=== PATIENT | male | born 1935 | race Caucasian/White ===

== ENCOUNTER 2017-01-11 19:15 | Inpatient (IN) | payer OTHER ==
[~2017-01-11] VITALS: Ht 165.1 cm; Wt 62.7 kg
--- NOTE | 2017-01-11 20:32 | NUR ---
PT PRESENTED TO ED WITH C/O LEFT FOOT PAIN AND REDNESS X 3 WEEKS. PT DENIES ANY TRAUMA. SWELLING NOTED TO LEFT FOOT. TENDER TO TOUCH. PT REPORTS PAIN LEVEL 8/10. PT REPORTS PAIN IS LOCALIZED. + CAP REFILL. PT HAS FULL ROM. PT IS AAOX4, BREATHING EVEN AND UNLABORED. PT IN NO ACUTE DISTRESS.
--- NOTE | 2017-01-11 21:06 | NUR ---
PT REFUSES TO TAKE VANCO RX. NOTIFIED DR. FERREIRA, PT REFUSES MED
[2017-01-11 21:34] LABS: CALCIUM 8.8 mg/dL (8.5-10.1); CARBON DIOXIDE 28.3 mmol/L (21-32); CHLORIDE SERUM 103 mmol/L (98-107); CREATININE SERUM 2.3 mg/dL (0.7-1.3); GLUCOSE SERUM 105 mg/dL (74-106); POTASSIUM SERUM 3.5 mmol/L (3.5-5.1); SODIUM SERUM 138 mmol/L (136-145)
--- NOTE | 2017-01-11 21:35 | NUR ---
PT SITTING UP RESTING, FAMILY AT BEDSIDE. PT IS AAOX4, BREATHING EVEN AND UNLABORED. PT IN NO ACUTE DISTRESS.
[2017-01-11 21:36] LABS: RED CELL DISTRIBUTION WIDTH 16.8 % (11.5-14.5)
[2017-01-11 21:37] LABS: PLATELET COUNT 41 x10^3mcL (130-400)
[2017-01-11 21:47] LABS: ALKALINE PHOSPHATASE 70 U/L (46-116); ALT/SGPT 27 U/L (16-63); AST/SGOT 19 U/L (15-37); BILIRUBIN TOTAL 0.45 mg/dL (0.20-1.00); TOTAL PROTEIN, SERUM 7.2 g/dL (6.4-8.2)
[2017-01-11 21:48] LABS: ALBUMIN 2.5 g/dL (3.4-5.0)
[2017-01-11 21:58] LABS: BAND NEUTROPHIL 0 % (0-10); MONOCYTE 2 % (0-7); SEGMENTED NEUTROPHILS 16 % (37-75)
[2017-01-11 21:59] LABS: BASOPHIL 0 % (0-2); PLATELET MORPHOLOGY PLATELETS DECREASED
[2017-01-11 22:00] LABS: rbc morphology (normal/abnorm) ABNORMAL (NORMAL)
--- NOTE | 2017-01-11 22:27 | NUR ---
RECEIVED PT FROM ED VIA [facility], CAME IN DUE TO LEFT WOUND AND PAIN. AAOX4. DENIES HEADACHE/DIZZINESS. NO SOB NOTED, LUNG SOUNDS DIMINISHED ON AUSCULTATION. DENIES CHEST PAIN/PRESSURE. DENIES ABDOMINAL DISCOMFORT. W/ EDEMA ON BILATERAL FEET (LEFT GREATER THAN THE RIGHT). DENIES ADBOMINAL DISCOMFORT. W/ WOUND AND DARK DISCOLORATION ON THE LEFT FOOT, MARKED, BALDO. C/O 7/10 PAIN ON THE LEFT FOOT. DENIES NUMBNESS/TINGLING SENSATION. WALKER AT BEDSIDE. SIDE RAILS UPX2. CALL LIGHT ON REACH. RECEIVED PT FROM ED W/ BOBBY VOGT. ENDORSED
[2017-01-11] MEDS ORDERED: ZESTRIL20 MG PO (22:32)
[2017-01-11] MEDS ORDERED: GOOD SENSE OMEP20 MG PO (22:32)
[2017-01-11] MEDS ORDERED: ALLOPURINOL100 MG PO (22:32)
--- NOTE | 2017-01-11 23:02 | NUR ---
GAVE REPORT TO ALEX BOWEN, TO ASSUME CARE POST TRANSFER.
[2017-01-11 23:34] LABS: FREE T4 1.2 ng/dL (0.76-1.46); FREE THYROXINE INDEX 2.4 ug/dL (1.4-4.5); T4(THYROXINE) 5.9 ug/dL (4.7-13.3)
[2017-01-11 23:35] LABS: CHOLESTEROL/HDL RATIO 3.5; MAGNESIUM 1.9 mg/dL (1.8-2.4); PHOSPHOROUS 3.3 mg/dL (2.5-4.9)
[2017-01-11 23:40] VITALS: Ht 165.1 cm; Wt 62.7 kg
[2017-01-11 23:46] LABS: T3 TOTAL 0.33 ng/mL
--- NOTE | 2017-01-12 00:03 | NUR ---
STS HAVING PAIN TO LLE, NORCO PO GIVEN. LLE ELEVATED ON PILLOWS.
--- NOTE | 2017-01-12 00:16 | NUR ---
REFUSED NORCO STS WOULD LIKE TO TRY SLEEPING FIRST. AMBIEN 5MG PO GIVEN.
--- NOTE | 2017-01-12 00:49 | NUR ---
NEUTROPENIC ISOLATION MAINTAINED (WBC=1.5).
[2017-01-12 03:35] LABS: UA SPECIFIC GRAVITY 1.015 (1.005-1.035); microscopic required? YES; urine erythrocyte NEGATIVE (NEGATIVE)
--- NOTE | 2017-01-12 05:40 | NUR ---
STS SLEPT OK AFTER AMBIEN PO. NO ANY DISTRESS THROUGHOUT SHIFT. STS PAIN TO LLE IS TOLERATED AT THIS TIME. ALL DUE MEDS GIVEN.
[2017-01-12 06:42] VITALS: BP 129/52
[2017-01-12 07:06] LABS: CALCIUM 8.5 mg/dL (8.5-10.1); CARBON DIOXIDE 25.2 mmol/L (21-32); CHLORIDE SERUM 103 mmol/L (98-107); CREATININE SERUM 2.1 mg/dL (0.7-1.3); GLUCOSE SERUM 104 mg/dL (74-106); MAGNESIUM 1.8 mg/dL (1.8-2.4); PHOSPHOROUS 3.8 mg/dL (2.5-4.9); POTASSIUM SERUM 3.8 mmol/L (3.5-5.1); SODIUM SERUM 131 mmol/L (136-145)
[2017-01-12 07:33] LABS: RED CELL DISTRIBUTION WIDTH 16.1 % (11.5-14.5)
--- NOTE | 2017-01-12 08:03 | NUR ---
0735-RECD CRITICAL VALUES FROM LAB WBC 1.4; H/H 5.5/16.4; DR. HUFF PAGED; PT IS OX4; RESP EASY AND REG AT RA. ABD SOFT, NONTENDER AND NONDISTENDED; VOIDS BY URINAL; LT FT WITH TRACE AND WRINKLED EDEMA, AREA OF DISCOLORATION IS NOTED AND BORDRES MARKED, PAIN ON AMBULATION BY WALKER PER PT; PAIN AT THIS TIME IS 5/10, TOLERABLE AND REFUSED PAIN MEDS; NSS AT 100 ML/HR INFUSING; RAC SITE PATENT AND WITHOUT INFILTRATION. FALL AND SAFETY PRECAUTION REINFORCED. WILL CONTINUE TO MONITOR STATUS. 0800- CALLED BACK AND MADE AWARE OF CRITICAL VALUES; NO ORDERS GIVEN AT THIS TIME;
--- NOTE | 2017-01-12 09:00 | NUR ---
HL'D PT ORDERED. CBC ORDERED AT 1400 BY .
[2017-01-12 09:24] VITALS: BP 138/66
[2017-01-12 11:06] LABS: SEGMENTED NEUTROPHILS 0 % (37-75)
[2017-01-12 11:07] LABS: ATYPICAL LYMPH 4 %; BAND NEUTROPHIL 0 % (0-10); BASOPHIL 0 % (0-2); METAMYELOCTE 12 % (0-2); MONOCYTE 4 % (0-7); rbc morphology (normal/abnorm) ABNORMAL (NORMAL)
[2017-01-12 11:08] LABS: PLATELET MORPHOLOGY D
[2017-01-12 11:23] LABS: PLATELET COUNT 30 x10^3mcL (130-400)
[2017-01-12 12:03] VITALS: BP 130/60
[2017-01-12 13:11] VITALS: BP 127/63
[2017-01-12 14:40] LABS: RED CELL DISTRIBUTION WIDTH 16.8 % (11.5-14.5)
--- NOTE | 2017-01-12 14:51 | NUR ---
RECD CRITICAL VALUE WBC 1.1 H/H 6.0/18.0. DR. HUFF AWARE; NO ORDER AT THIS TIME. WILL CONTINUE TO MONITOR STATUS.
[2017-01-12 16:02] LABS: BAND NEUTROPHIL 0 % (0-10); BASOPHIL 0 % (0-2)
[2017-01-12 16:03] LABS: rbc morphology (normal/abnorm) ABNORMAL (NORMAL)
[2017-01-12 16:07] LABS: PLATELET MORPHOLOGY PLATELETS DECREASED
[2017-01-12 16:12] LABS: PLATELET COUNT 27 x10^3mcL (130-400)
[2017-01-12 16:21] LABS: SEGMENTED NEUTROPHILS 2 % (37-75)
[2017-01-12 16:26] LABS: ATYPICAL LYMPH 10 %
[2017-01-12 16:27] LABS: METAMYELOCTE 8 % (0-2); MONOCYTE 4 % (0-7)
[2017-01-12 16:28] LABS: MYELOCYTE 2 % (0-2)
[2017-01-12 17:03] VITALS: BP 142/56
--- NOTE | 2017-01-12 18:33 | NUR ---
NO NO NEW ACUTE CHANGES. VITAL SIGNS STABLE. DENIES CP. WILL CONTINUE TO MONITOR STATUS.
--- NOTE | 2017-01-12 19:40 | NUR ---
RECEIVED PT LAYING IN BED. NEUTROPENIC PRECAUTIONS IN PLACE. DISCOLORATION TO TOP OF LEFT FOOT IS MARKED, BALDO, PT DENIES PAIN AT THIS TIME. 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 PT DENIES CHEST PAIN. BLE PEDAL PULSES ARE WEAK. TRACE EDEMA NOTED IN BLE, GREATER IN LLE. SCDS IN PLACE. PT IS BREATHING ON RA, LUNG SOUNDS DIMINISHED BILAT. PT DENIES SOB. PT DOES NOT APPEAR TO BE IN RESP DISTRESS. PT BREATHING EVEN AND UNLABORED. ABD IS ROUND AND SOFT WITH ACTIVE BOWEL SOUNDS. PT STATES LAST BM WAS YESTERDAY, NORMAL AND FORMED. PT DENIES N/V AT THIS TIME. PT IS ABLE TO FREELY VOID URINE. URINAL AT BEDSIDE. PT HAS GENERALIZED WEAKNESS IN BLE. HIS WALKER IS AT BEDSIDE. PT DENIES ANY PAIN AT THIS TIME. IV SITE TO THE RAC IS SALIN LOCKED PER DOCTOR'S ORDERS. IV SITE IS DRY, PATENT, AND INTACT. ROOM IS FREE OF SAFETY HAZARDS. BED IN LOWEST POSITION WITH SIDE RAILS UP X2. CALL LIGHT WITHIN REACH. WILL CONTINUE TO MONITOR
[2017-01-12 22:07] VITALS: BP 150/60
--- NOTE | 2017-01-13 03:07 | NUR ---
PT LAYING IN BED, ASLEEP WITH EYES CLOSED AT THIS TIME. PT DOES NOT APPEAR TO BE IN ANY SORT OF DISTRESS. CALL LIGHT WITHIN REACH. WILL CONTINUE TO MONITOR
--- NOTE | 2017-01-13 05:03 | NUR ---
PT WAS ABLE TO GET A GOOD NIGHT'S REST. NO SIGNIFICANT CHANGES TO REPORT. PT HAD NO C/O PAIN THROUGH THE NIGHT. PT COMPLIED WITH NURSING CARE THROUGH THE SHIFT. DISCOLORATION TO THE LEFT FOOT REMAINS MARKED AND HSE ADVISOR. PT REMAINS ON NEUTROPENIC PRECAUTIONS. IV SITE TO RAC REMAINS SALINE LOCKED PER DOCTOR'S ORDERS. IV SITE IS DRY, PATENT, AND INTACT. ROOM IS FREE OF SAFETY HAZARDS. BED IN LOWEST POSITION WITH SIDE RAILS UP X2. CALL LIGHT WITHIN REACH. WILL ENDORSE CARE TO DAY NURSE
[2017-01-13 05:38] VITALS: BP 122/54
[2017-01-13 06:11] LABS: CALCIUM 8.2 mg/dL (8.5-10.1); CARBON DIOXIDE 25.7 mmol/L (21-32); CHLORIDE SERUM 104 mmol/L (98-107); GLUCOSE SERUM 94 mg/dL (74-106); MAGNESIUM 1.9 mg/dL (1.8-2.4); PHOSPHOROUS 3.7 mg/dL (2.5-4.9); POTASSIUM SERUM 3.6 mmol/L (3.5-5.1); SODIUM SERUM 137 mmol/L (136-145)
[2017-01-13 07:14] LABS: PLATELET COUNT 40 x10^3mcL (130-400); RED CELL DISTRIBUTION WIDTH 16.8 % (11.5-14.5)
[2017-01-13 07:55] LABS: BAND NEUTROPHIL 8 % (0-10); SEGMENTED NEUTROPHILS 4 % (37-75)
[2017-01-13 07:56] LABS: ATYPICAL LYMPH 8 %; MONOCYTE 12 % (0-7); PLATELET MORPHOLOGY PLATELETS DECREASED; rbc morphology (normal/abnorm) ABNORMAL (NORMAL)
--- NOTE | 2017-01-13 08:00 | NUR ---
RECEIVED PT IN BED ALERT AND ORIENTED*4. CARE ASSURED.LEFT LOWER LEG CELLULITIES NOTED.VSS.PT ON MULTIPLE ABT.WBC AT 1.3M AND HG 5.4.HX OF CA.EVEN AND UNLABORED BREATHING.NEUTROPENIC ISOLATION IN PROGRESS.CALL LIGHT WITHIN REACH.NEEDS ARE BEING MET.
--- NOTE | 2017-01-13 08:34 | NUR ---
(RESIDENT) ASSIGNED TO THIS PT MADE AWARE OF H/H-5.07/22, WILL AWAIT FOR FURTHER ORDER.
[2017-01-13 09:23] VITALS: BP 135/55
--- NOTE | 2017-01-13 13:19 | NUR ---
PT AWAKE,RESTING QUIETLY AFTER LUNCH.NO ACUTE DISTRESS.DENIES PAIN TO LOWER LEFT LEG.VSS.AFEBRILE.NEED ARE BEING MET. CALL LIGHT WITHI REACH.
[2017-01-13 13:50] VITALS: BP 136/56
[2017-01-13 17:26] VITALS: BP 139/65
--- NOTE | 2017-01-13 18:00 | NUR ---
PT IN BED WATCHING TV.LOW GRADE TEMP NOTED 100.0.NO ACUTE DISTRESS.VSS.NEEDS ARE BEING MET.CALL LIGHT WITHIN REACH.NEUTROPENIC ISOLATION MAINTAINED.
[2017-01-13 19:05] LABS: RED CELL DISTRIBUTION WIDTH 16.3 % (11.5-14.5)
--- NOTE | 2017-01-13 19:10 | NUR ---
RECEIVED CALL FROM LAB ABOUT CRITICAL RESULTS, WBC=1.0, PLATELET=30 AND H/H=5.6/17. PRIMARY NURSE KAYCE MADE AWARE
[2017-01-13 20:05] LABS: MONOCYTE 4 % (0-7); SEGMENTED NEUTROPHILS 3 % (37-75)
[2017-01-13 20:06] LABS: ATYPICAL LYMPH 2 %; BASOPHIL 2 % (0-2); rbc morphology (normal/abnorm) ABNORMAL (NORMAL)
[2017-01-13 20:07] LABS: PLATELET MORPHOLOGY PLATELETS DECREASED
[2017-01-13 20:10] LABS: PLATELET COUNT 30 x10^3mcL (130-400)
--- NOTE | 2017-01-13 20:16 | NUR ---
RECEIVED PT LAYING IN BED RESTIN COMFORTABLY. PT STATES TENDERNESS TO TOP OF LEFT FOOT BUT DENIES PAIN, STATING IT FEELS BETTER THAN IT HAS BEEN LATELY. PT IS CALM AND COOPERATIVE. SPEAKS AND UNDERSTANDS [place] WELL. PT IS ON TELE #27, NSR, RATE 67 WITH A BBB. PT DENIES CHEST PAIN. BILAT PEDAL PULSES ARE WEAK. TRACE EDEMA NOTED IN BLE, GREATER IN LLE. PT IS BREATHING ON RA, LUNG SOUNDS DIMINISHED BILAT. PT DENIES SOB. PT BREATHING EVEN AND UNLABORED. DOES NOT APPEAR TO BE IN RESP DISTRESS AT THIS TIME. LAST BM WAS 01/11. ABD IS ROUND AND SOFT WITH ACTIVE BOWEL SOUNDS. PT DENIES N/V AT THIS TIME. PT IS ABLE TO FREELY VOID URINE WITHOUT ISSUE. URINAL IS AT BEDSIDE WHICH HE DOES UTILIZE. PT HAS GENERALIZED WEAKNESS. PT STATES HE USES A WALKER AT HOME. THERE IS DISCOLORATION TO TOP OF LEFT FOOT, MARKED, SKIN INTACT, LOCATE TECHNICIAN. PT HAS IV SITE TO RAC, SALINE LOCK PER DOCTOR'S ORDERS. IV SITE IS DRY, PATENT, AND INTACT. PT REMAINS ON NEUTROPENIC PRECAUTIONS. ROOM IS FREE OF SAFETY HAZARDS. BED IN LOWEST POSITION WITH SIDE RAILS UP X2. CALL LIGHT WITHIN REACH. WILL CONTINUE TO MONITOR
[2017-01-13 21:59] VITALS: BP 139/54
--- NOTE | 2017-01-13 23:18 | NUR ---
PT C/O A CHEST PAIN AND STATES HE'S HAD IT BEFORE. PT STATES IT IS FROM HEARTBURN AND THAT HE IS CONTINUOUSLY BELCHING AND BURPING UP GAS. DR. BE MADE AWARE. WILL AWAIT ORDERS. WILL CONTINUE TO MONITOR
--- NOTE | 2017-01-13 23:33 | NUR ---
PT GIVEN PRILOSEC ONE TIME DOSE FOR CONTACT BELCHING AND HEARTBURN PAIN. WILL CONTINUE TO MONITOR
--- NOTE | 2017-01-14 02:06 | NUR ---
PT LAYING IN BED WITH EYES CLOSED AT THIS TIME. DOES NOT APPEAR TO BE IN ANY DISTRESS. CALL LIGHT WITHIN REACH. WILL CONTINUE TO MONITOR
--- NOTE | 2017-01-14 05:07 | NUR ---
PT WAS ABLE TO RECEIVE A GOOD NIGHT'S REST. NO SIGNIFICANT CHANGES TO REPORT. PT COMPLIED WITH NURSING CARE THROUGHOUT THE SHIFT. NO C/O PAIN DURING THE NIGHT. DISCOLORATION TO THE TOP OF L FOOT REMAINS MARKED AND SKIN INTACT. LEFT FOOT IS ELEVATED ON A PILLOW. IV SITE TO RAC REMAINS SALINE LOCKED PER DOCTOR'S ORDERS. IV SITE DRY, PATENT, AND INTACT. ROOM IS FREE OF SAFETY HAZARDS. BED IN LOWEST POSITION WITH SIDE RAILS UP X2. CALL LIGHT WITHIN REACH. WILL CONTINUE TO MONITOR
--- NOTE | 2017-01-14 05:14 | NUR ---
PT WAS ABLE TO RECEIVE A GOOD NIGHT'S REST. NO SIGNIFICANT CHANGES TO REPORT. PT COMPLIED WITH NURSING CARE THROUGHOUT THE SHIFT. NO C/O PAIN DURING THE NIGHT. DISCOLORATION TO THE TOP OF L FOOT REMAINS MARKED AND SKIN INTACT. LEFT FOOT IS ELEVATED ON A PILLOW. IV SITE TO RAC REMAINS SALINE LOCKED PER DOCTOR'S ORDERS. IV SITE DRY, PATENT, AND INTACT. ROOM IS FREE OF SAFETY HAZARDS. BED IN LOWEST POSITION WITH SIDE RAILS UP X2. CALL LIGHT WITHIN REACH. WILL ENDORSE CARE TO DAY NURSE
[2017-01-14 05:21] VITALS: BP 146/61
[2017-01-14 06:58] LABS: CALCIUM 8.1 mg/dL (8.5-10.1); CARBON DIOXIDE 24.3 mmol/L (21-32); CHLORIDE SERUM 103 mmol/L (98-107); GLUCOSE SERUM 102 mg/dL (74-106); MAGNESIUM 1.8 mg/dL (1.8-2.4); PHOSPHOROUS 3.5 mg/dL (2.5-4.9); POTASSIUM SERUM 3.6 mmol/L (3.5-5.1); SODIUM SERUM 138 mmol/L (136-145)
[2017-01-14 07:24] LABS: RED CELL DISTRIBUTION WIDTH 16.2 % (11.5-14.5)
--- NOTE | 2017-01-14 07:35 | NUR ---
RECEIVED THE PATIENT AWAKE AND ORIENTED TO PERSON, PLACE AND TIME. PATIENT C/O DECREASED APPETITE. PATIENT DENIED SHORTNESS OF BREATH OR NAUSEA/VOMITING. PATIENT STATED HAVING MILD ACHING 1/10 TO LEFT FOOT. LEFT DORSAL NOTED WITH SLIGHT SWELLING AND MARKED DARK DISCOLORATION; ELEVATED ON A PILLOW. SL TO RAC. TELE # 17 READS SINUS RHYTHMS WITH BBB. CALL LIGHT WITHIN REACH. SIDE RAILS UP X3. BED WAS AT LOWEST POSITION AND ALARM WAS ON.
--- NOTE | 2017-01-14 08:35 | NUR ---
DR. NASSAR AND THE TEAM WERE MAKING ROUND TO SEE THE PATIENT. DR. PADILLA-RESIDENT WAS AWARE OF THE PATIENT'S LAB RESULTS THIS MORNING. HE ORDERED TO RECHECK THE LAB LEVELS TOMORROW MORNING.
[2017-01-14 08:42] LABS: ATYPICAL LYMPH 20 %; BAND NEUTROPHIL 0 % (0-10); BASOPHIL 5 % (0-2); MONOCYTE 10 % (0-7); SEGMENTED NEUTROPHILS 0 % (37-75)
[2017-01-14 08:43] LABS: MYELOCYTE 5 % (0-2); ovalocyte/elliptocyte 2+; rbc morphology (normal/abnorm) ABNORMAL (NORMAL)
[2017-01-14 08:44] LABS: PLATELET MORPHOLOGY PLATELETS DECREASED
[2017-01-14 08:51] LABS: PLATELET COUNT 31 x10^3mcL (130-400)
[2017-01-14 10:00] VITALS: BP 151/67
[2017-01-14 13:49] VITALS: BP 146/44
[2017-01-14 17:47] VITALS: BP 150/54
--- NOTE | 2017-01-14 18:30 | NUR ---
THE PATIENT WAS NOTIFIED THAT THE DOCTOR ORDERED BLOOD TRANSFUSION FOR HIM. ALSO, THE PATIENT WAS WITNESSED TO SIGN THE CONSENT FOR BLOOD TRANSFUSION AFTER BLOOD TRANSFUSION INFORMATION WAS PROVIDED TO THE PATIENT. THE PATIENT'S PET AMBASSADOR, ROSALBA SWENSON WAS AT BEDSIDE AND AWARE OF THE INFORMATION ABOVE.
--- NOTE | 2017-01-14 19:15 | NUR ---
LATE ENTRY: THE POST OP SHOE WAS PROVIDED TO THE PATIENT AFTER RECEIVING THE ORDER.
--- NOTE | 2017-01-14 19:36 | NUR ---
PT RECIEVED AAO,PT LYING IN THE BED SLEEPING REG RESP NO SOB V/S STABLE,KEPT CLEAN AND DRY TO TOUCH,IV INFUSING WELL WITH THE SITE PATENT AND INTACT,MADE COMFORTABLE IN BED,PT ON TELE MONITOR AND IN NSR NO ECTOPY OR CHEST PAIN AT THIS TIME,HOB,CALL LIGHT MADE CLOSE TO THE PATIENT AND WILL CONTINUE TO MONITOR.
[2017-01-14 20:45] VITALS: BP 136/60
--- NOTE | 2017-01-14 23:19 | NUR ---
STARTED FIRST UNIT OF BLOOD ORDER CHECKED WITH ANOTHER RN,WILL CONTINUE TO MONITOR.
--- NOTE | 2017-01-15 00:24 | NUR ---
BLOOD TRANSFUSION IN PROGRESS, PT TOLERATING IT WELL,MO ADVERSE REACTION NOTICE AT THIS TIME,WILL CONTINUE TO MONITOR.
--- NOTE | 2017-01-15 00:50 | NUR ---
BLOOD TRANSFUSION IN PROGRESS SO NOT ABLE TO OBTAIN THE CBC PUT IN TO BE DRAWN,WILL CONTINUE TO MONITOR.
--- NOTE | 2017-01-15 01:30 | NUR ---
BLOOD TRANSFUSION COMPLETED WITHOUT ANY REACTION NOTICE,WILL CONTINUE TO MONITOR.
[2017-01-15 05:50] VITALS: BP 114/57
[2017-01-15 06:28] LABS: CALCIUM 8.1 mg/dL (8.5-10.1); CHLORIDE SERUM 104 mmol/L (98-107); GLUCOSE SERUM 104 mg/dL (74-106); POTASSIUM SERUM 3.4 mmol/L (3.5-5.1); SODIUM SERUM 139 mmol/L (136-145)
--- NOTE | 2017-01-15 06:34 | NUR ---
PT HAD A RESTING NIGHT V/S STABLE,KEPT CLEAN AND DRY TO TOUCH AND WILL CONTINUE TO MONITOR.
--- NOTE | 2017-01-15 07:30 | NUR ---
RESUME CARE: THE PATIENT AWAKE AND ORIENTED TO PERSON, PLACE AND TIME. DENIED SHORTNESS OF BREATH OR NAUSEA/VOMITING. THE PATIENT STATED HAVING MILD SORENESS TO LEFT FOOT. H/L TO RAC. CALL LIGHT WITHIN REACH. SIDE RAILS UP X3. BED WAS AT LOWEST POSITION AND ALARM WAS ON. NEUTROPENIC PRECAUTION MAINTAINED DUE TO LOW WBC COUNT.
--- NOTE | 2017-01-15 08:10 | NUR ---
DR. RADFORD AND THE TEAM WERE MAKING ROUND TO SEE THE PATIENT. THE CARE PLAN WAS DISCUSSED WITH THE PATIENT; THE PATIENT VERBALIZED AGREED WITH THE PLAN. DR. MAYEN-RESIDENT WAS NOTIFIED OF THE PATIENT'S LAB RESULTS THIS MORNING INCLUDING K 3.4, WBC 1.4, AND H/H 6.6/20.
[2017-01-15 09:31] VITALS: BP 137/65
[2017-01-15 11:22] LABS: ATYPICAL LYMPH 10 %; BAND NEUTROPHIL 0 % (0-10); BASOPHIL 0 % (0-2); MONOCYTE 6 % (0-7); MYELOCYTE 4 % (0-2); SEGMENTED NEUTROPHILS 24 % (37-75)
[2017-01-15 11:23] LABS: ovalocyte/elliptocyte 1+; rbc morphology (normal/abnorm) ABNORMAL (NORMAL)
[2017-01-15 11:24] LABS: burr cell (echinocyte) 1+; schistocyte (helmet cell) 1+
[2017-01-15 11:32] LABS: PLATELET COUNT 33 x10^3mcL (130-400)
--- NOTE | 2017-01-15 13:15 | NUR ---
THE K-PAD WAS APPLIED TO THE PATIENT'S LEFT LEG ORDERED.
[2017-01-15 16:17] VITALS: BP 127/62
[2017-01-15 16:45] VITALS: BP 127/62
--- NOTE | 2017-01-15 17:24 | NUR ---
THE INSTRUCTION WAS IMPLEMENTED TO THE PATIENT INFRONT OF THE PATIENT'S SON AND CAREGIVER-ROSALBA SWENSON. ALL QUESTIONS WERE ANSWERED AND ALL VERBALIZED UNDERSTANDING. H/L WAS REMOVED WITH CATH INTACT. ID BANDS WERE REMOVED. THE PHOTOGRAPH OF THE SKIN AT LEFT FOOT WAS TAKEN. THE PATIENT WAS TAKEN TO THE DISCHARGE OFFICE VIA WHEELCHAIR IN STABLE CONDITION. ALL BELONGINGS WERE SENT HOME WITH THE PATIENT UPON DISCHARGE.
== END 2017-01-15 17:24 | disposition home or self-care (01) | DRG 602 ==
LOC: ED 19:15 → DU 22:21 → MU 22:21 → DU 23:24 → MU 01-14 22:29
PROVIDERS: Emergency Medicine; Family Medicine Sports Medicine; ADMIT Student in an Organized Health Care Education/Training Program
PROC: 30233N1 Transfusion of Nonautologous Red Blood Cells into Peripheral Vein, Percutaneous Approach (ICD-10-PCS; principal; 2017-01-14)
DX: L03.116 Cellulitis of left lower limb (principal); N17.0 Acute kidney failure with tubular necrosis; E43 Unspecified severe protein-calorie malnutrition; C95.90 Leukemia, unspecified not having achieved remission; D61.818 Other pancytopenia; Z90.49 Acquired absence of other specified parts of digestive tract; Z85.46 Personal history of malignant neoplasm of prostate; E11.65 Type 2 diabetes mellitus with hyperglycemia; Z68.24 Body mass index [BMI] 24.0-24.9, adult; I12.9 Hypertensive chronic kidney disease with stage 1 through stage 4 chronic kidney disease, or unspecified chronic kidney disease; N18.9 Chronic kidney disease, unspecified; E11.22 Type 2 diabetes mellitus with diabetic chronic kidney disease; D64.9 Anemia, unspecified; D75.9 Disease of blood and blood-forming organs, unspecified; L85.3 Xerosis cutis; D46.9 Myelodysplastic syndrome, unspecified
CPT/HCPCS: 82962; 83880; 84439; J1956; J2543; J3370; J3490; J7030; J7050; P9016; Q0092; Q0163